=== PATIENT | female | born 1995 | race Caucasian/White ===

== ENCOUNTER 2017-02-18 23:44 | Outpatient (CLI) | payer BC, OTHER ==
[~2017-02-18] VITALS: Ht 160 cm; Wt 109.8 kg
[~2017-02-18 23:44] MED LIST: NAPROSYN500 MG PO; NOHOMEMEDS; no home
[2017-02-19] VITALS: BP 139/76
[2017-02-19 01:42] VITALS: BP 144/66
[2017-02-19 02:31] VITALS: BP 142/65
[2017-02-19 02:40] VITALS: BP 130/82
[2017-02-19 03:10] VITALS: BP 124/67
== END 2017-02-19 03:45 | disposition home or self-care (01) ==
LOC: LDRP-OP 23:44 → 2WEST 23:45 → LDRP-OP 03-27 14:02
DX: O47.1 False labor at or after 37 completed weeks of gestation (principal); Z3A.39 39 weeks gestation of pregnancy
CPT/HCPCS: 59025; G0378

== ENCOUNTER 2017-02-21 03:56 | Inpatient (IN) | payer BC, OTHER ==
[2017-02-21] VITALS (18 sets, daily range): BP systolic 108–154; BP diastolic 54–94
[~2017-02-21] VITALS: Ht 165.1 cm; Wt 109.7 kg
[2017-02-21 05:41] LABS: EOSINOPHIL (%) 1.6 % (0-5); EOSINOPHIL COUNT 0.2 K/uL (0-0.3); HEMATOCRIT 32.7 % (36.0-46.0); IMMATURE GRANULOCYTE (%) 1.2 % (0.0-0.7); IMMATURE GRANULOCYTE COUNT 0.2 K/uL; INSTRUMENT ABS NEUTROPHIL CT 9.4 K/uL; LYMPHOCYTE COUNT 1.7 K/uL (1.0-2.8); MCH 30.3 PG (29.0-34.0); MCHC 33.9 G/DL (30.0-36.0); MCV 89.3 FL (83-99); MEAN PLAT.VOLUME 13.1 uM^3 (9.5-12.4); MONOCYTE (%) 7.2 % (3-12); MONOCYTE COUNT 0.9 K/uL (0-0.8); NEUTROPHIL (%) 76.2 % (45-76); NEUTROPHIL COUNT 9.4 K/uL (1.8-6.4); PLATELET COUNT 132 K/uL (156-360); RBC DIS.WIDTH-CV 13.8 % (11.8-14.6); RBC DIS.WIDTH-SD 44.6 % (39-53); RED BLOOD COUNT 3.66 M/uL (3.80-5.20); WHITE BLOOD COUNT 12.4 K/uL (4.1-10.2)
[2017-02-21] MEDS ORDERED: IBUPROFEN800 MG PO (11:01)
[2017-02-22 07:13] VITALS: BP 110/68
[2017-02-22 14:45] VITALS: BP 147/75
[2017-02-22 19:04] VITALS: BP 143/64
[2017-02-22 23:10] VITALS: BP 137/76
[2017-02-23 07:19] VITALS: BP 142/82
== END 2017-02-23 13:14 | disposition home or self-care (01) | DRG 775 ==
LOC: LDRP-OP 03:56 → 2WEST 03:57 → LDRP-OP 03-27 04:03
PROVIDERS: Midwife
PROC: 10E0XZZ Delivery of Products of Conception, External Approach (ICD-10-PCS; principal; 2017-02-21)
PROC: 3E0S3BZ Introduction of Anesthetic Agent into Epidural Space, Percutaneous Approach (ICD-10-PCS; 2017-02-21)
DX: O99.214 Obesity complicating childbirth (principal); Z68.41 Body mass index [BMI] 40.0-44.9, adult; O99.354 Diseases of the nervous system complicating childbirth; Z37.0 Single live birth; Z3A.39 39 weeks gestation of pregnancy; E66.9 Obesity, unspecified; F41.9 Anxiety disorder, unspecified; G43.909 Migraine, unspecified, not intractable, without status migrainosus; O99.344 Other mental disorders complicating childbirth; Z88.2 Allergy status to sulfonamides
CPT/HCPCS: 59025; 85025; C1755; G0378; J0595; J3010; J7120